=== PATIENT | female | born 1985 | race Two or more races ===

== ENCOUNTER 2018-07-03 15:00 | Inpatient (IN) | payer OTHER ==
[~2018-07-03] VITALS: Ht 167.6 cm; Wt 90.7 kg
[~2018-07-03 15:00] MED LIST: PRENATAL CAPLE1 EACH PO
[2018-07-19] MEDS ORDERED: ANUSOL-HC30 G2 RECTAL (08:09)
== END 2018-07-21 12:47 | DRG 807 ==
LOC: LDR 07-19 06:30 → OB/GYN 07-19 08:06 → LDR 07-19 08:07 → OB/GYN 07-19 17:00
PROVIDERS: ADMIT Obstetrics & Gynecology
PROC: 10E0XZZ Delivery of Products of Conception, External Approach (ICD-10-PCS; principal; 2018-07-19)
PROC: 0KQM0ZZ Repair Perineum Muscle, Open Approach (ICD-10-PCS; 2018-07-19)
PROC: 4A1HXCZ Monitoring of Products of Conception, Cardiac Rate, External Approach (ICD-10-PCS; 2018-07-19)
DX: O70.1 Second degree perineal laceration during delivery (principal); Z37.0 Single live birth; Z3A.39 39 weeks gestation of pregnancy

== ENCOUNTER 2020-03-26 15:09 | Outpatient (CLI) | payer OTHER ==
[~2020-03-26 15:09] MED LIST changes: +ANUSOL-HC30 G2 RECTAL
== END 2020-03-26 15:30 | disposition home or self-care (01) ==
LOC: NST 15:09
PROVIDERS: ATTEND Obstetrics & Gynecology Maternal & Fetal Medicine
DX: Z34.83 Encounter for supervision of other normal pregnancy, third trimester (principal)

== ENCOUNTER 2020-05-14 13:30 | Inpatient (IN) | payer OTHER ==
[~2020-05-14] VITALS: Ht 167.6 cm; Wt 93.0 kg
[2020-05-26] MEDS ORDERED: PRENATAL CAPLE1 EAC1 PO (07:27)
== END 2020-05-28 11:50 | disposition home or self-care (01) | DRG 807 ==
LOC: OB/GYN 05-26 06:42 → LDR 05-26 06:42 → OB/GYN 05-26 13:05 → SURH 05-29 13:30
PROVIDERS: ADMIT Obstetrics & Gynecology; ATTEND Obstetrics & Gynecology
PROC: 10E0XZZ Delivery of Products of Conception, External Approach (ICD-10-PCS; principal; 2020-05-26)
PROC: 0KQM0ZZ Repair Perineum Muscle, Open Approach (ICD-10-PCS; 2020-05-26)
PROC: 4A1HXFZ Monitoring of Products of Conception, Cardiac Rhythm, External Approach (ICD-10-PCS; 2020-05-26)
PROC: 3E033VJ Introduction of Other Hormone into Peripheral Vein, Percutaneous Approach (ICD-10-PCS; 2020-05-26)
DX: O70.1 Second degree perineal laceration during delivery (principal); Z37.0 Single live birth; Z3A.38 38 weeks gestation of pregnancy; Z20.828 Contact with and (suspected) exposure to other viral communicable diseases